=== PATIENT | male | born 1950 | race African-American/Black ===

== ENCOUNTER 2022-06-26 03:56 | Emergency (ER) | payer MEDICAID ==
[~2022-06-26] VITALS: Ht 177.8 cm; Wt 78.6 kg
[2022-06-26 04:55] VITALS: BP 158/75
== END 2022-06-26 06:18 | disposition home or self-care (01) ==
LOC: ER 03:56
DX: R33.9 Retention of urine, unspecified (principal); I10 Essential (primary) hypertension; E78.00 Pure hypercholesterolemia, unspecified
CPT/HCPCS: 51702; 99284

== ENCOUNTER 2022-12-07 12:01 | Emergency (ER) | payer MEDICAID ==
[~2022-12-07] VITALS: Ht 172.7 cm; Wt 82.0 kg
[2022-12-07 12:13] VITALS: BP 115/70
[2022-12-07] MEDS ORDERED: BO1 TP (14:26)
[2022-12-07] MEDS ORDERED: IBUP-2028 MT (14:26)
[2022-12-07] MEDS ORDERED: SULF1TAB48 MT (14:26)
[2022-12-07] MEDS ORDERED: CEPH500C2 MT (14:26)
== END 2022-12-07 14:48 | disposition home or self-care (01) ==
LOC: ER 12:01
DX: M79.675 Pain in left toe(s) (principal); I10 Essential (primary) hypertension; I49.9 Cardiac arrhythmia, unspecified; E78.00 Pure hypercholesterolemia, unspecified
CPT/HCPCS: 73660; 99283

== ENCOUNTER 2025-02-28 19:46 | Emergency (ER) | payer MEDICAID ==
[~2025-02-28] VITALS: Ht 170.2 cm; Wt 82.0 kg
[~2025-02-28 19:46] MED LIST: BO1 TP; CEPH500C2 MT; IBUP-2028 MT; SULF1TAB48 MT
[2025-02-28] MEDS ORDERED: LIDOCAINE 5% PATCH TOP SCH (21:15)
[2025-02-28] MEDS: LIDOCAINE 5% PATCH TOP SCH (21:15)
[2025-02-28 21:34] VITALS: O2SAT 98
[2025-02-28] MEDS: ACETAMINOPHEN 500MG TABLET PO ONE (21:41)
[2025-02-28 21:42] LABS: CLARITY URINE CLOUDY (CLEAR); COLOR URINE ORANGE (YELLOW); GLUCOSE URINE NEGATIVE (NEGATIVE); KETONES URINE TRACE (NEGATIVE); LEUKOCYTE ESTERASE URINE 3+ (NEGATIVE); NITRITE URINE NEGATIVE (NEGATIVE); OCCULT BLOOD URINE NEGATIVE (NEGATIVE); PH URINE 5.5 (4.5-8.0); PROTEIN URINE 1+ (NEGATIVE); SPECIFIC GRAVITY URINE 1.023 (1.005-1.030)
[2025-02-28 22:00] LABS: BACTERIA URINE 1+; RBC URINE 0-2 /hpf (0-2); SQUAMOUS EPITHELIAL CELL URINE 1+ /lpf (RARE/1+)
[2025-02-28 22:54] LABS: DIFFERENTIAL COMMENT 1; HEMATOCRIT. 40.2 % (42.0-52.0); HEMOGLOBIN. 13.3 g/dL (14.0-18.0); MEAN CORPUSCULAR HGB CONC 33.1 g/dL (31.0-37.0); MEAN CORPUSCULAR VOLUME 90.8 fL (80.0-94.0); MEAN PLATELET VOLUME 10.2 fl (7.4-10.4); PLATELET 140 x1000/uL (130-400); RED BLOOD CELL COUNT 4.43 mill/uL (4.7-6.1); RED CELL DISTRIBUTION WIDTH 13.9 % (11.6-14.6); WHITE BLOOD COUNT 16.3 x1000/uL (4.5-11.0)
[2025-02-28 23:00] LABS: CHLORIDE 104 mEq/L (98-107); POTASSIUM 4.4 mEq/L (3.5-5.1); SODIUM 137 mEq/L (136-145)
[2025-02-28 23:01] LABS: CALCIUM 9.4 mg/dL (8.7-10.4); CARBON DIOXIDE 26 mEq/L (21-32)
[2025-02-28 23:06] LABS: CREATININE 1.6 mg/dL (0.6-1.3); GLUCOSE 113 mg/dL (70-105); UREA NITROGEN BLOOD 23 mg/dL (9-23)
[2025-02-28 23:08] LABS: TROPONIN I HIGH SENSITIVITY < 4 ng/L (3.0-53)
[2025-02-28 23:25] LABS: PLATELET ESTIMATE NORMAL
[2025-02-28] MEDS ORDERED: LIDO-53 TP (23:58)
[2025-02-28] MEDS ORDERED: TOPUD MT (23:58)
[2025-03-01 00:12] VITALS: BP 97/57; PULSE 69; RESP 14; TEMP 37; O2SAT 99
== END 2025-03-01 00:25 | disposition home or self-care (01) ==
LOC: ER 19:46
DX: M54.9 Dorsalgia, unspecified (principal); E78.00 Pure hypercholesterolemia, unspecified; I10 Essential (primary) hypertension; N40.0 Benign prostatic hyperplasia without lower urinary tract symptoms; Z95.0 Presence of cardiac pacemaker; Z79.899 Other long term (current) drug therapy
CPT/HCPCS: 36415; 71045; 80048; 81003; 84484; 85025; 93005; 99285

== ENCOUNTER 2025-03-06 09:18 | Inpatient (IN) | payer MEDICAID ==
[~2025-03-06] VITALS: Ht 175.3 cm; Wt 82.6 kg
[~2025-03-06 09:18] MED LIST changes: +LIDO-53 TP; +TOPUD MT
[2025-03-06] MEDS: SODIUM CHLORIDE 0.9% 1,000 ML IV ONE (10:18)
[2025-03-06 10:22] LABS: HEMATOCRIT. 36.6 % (42.0-52.0); HEMOGLOBIN. 12.1 g/dL (14.0-18.0); MEAN PLATELET VOLUME 9.4 fl (7.4-10.4); PLATELET 160 x1000/uL (130-400); RED BLOOD CELL COUNT 4.10 mill/uL (4.7-6.1); RED CELL DISTRIBUTION WIDTH 13.5 % (11.6-14.6)
[2025-03-06 10:31] LABS: INR 1.1
[2025-03-06 10:37] LABS: CREATININE 1.3 mg/dL (0.6-1.3)
[2025-03-06 10:38] LABS: TROPONIN I HIGH SENSITIVITY 18 ng/L (3.0-53); UREA NITROGEN BLOOD 13 mg/dL (9-23)
[2025-03-06 10:39] LABS: ASPARTATE AMINOTRANSFERASE 39 IU/L (<34)
[2025-03-06 10:40] LABS: BILIRUBIN DIRECT 0.4 mg/dL (<=3.0); BILIRUBIN TOTAL 1.0 mg/dL (0.1-1.0); PROTEIN TOTAL 6.4 g/dL (6.0-8.3)
[2025-03-06 12:44] LABS: TROPONIN I HIGH SENSITIVITY 21 ng/L (3.0-53)
[2025-03-06] MEDS ORDERED: CEFTRIAXONE 1,000 MG in DEXT 5% WATER 100 ML IV STA (13:08)
[2025-03-06] MEDS: CEFTRIAXONE 1GM/50ML 50ML IV SCH (13:46)
[2025-03-06 13:58] LABS: BAND% 2.0 % (1.0-6.0); LYMPHOCYTES % MANUAL 2.0 % (20.0-50.0); MONOCYTES % MANUAL 6.0 % (2.0-8.0); NEUTROPHILS % MANUAL 90.0 % (45.0-75.0); PLATELET ESTIMATE NORMAL
[2025-03-06] MEDS ORDERED: CEFTRIAXONE 1GM/50ML 50 ML IV SCH (17:00)
[2025-03-06] MEDS: ACETAMINOPHEN 325MG TABLET PO PRN (18:26)
[2025-03-06 20:00] VITALS: BP_SYST 100; BP_SYST 101; BP_SYST 82; BP_DIAS 38; BP_DIAS 50; BP_DIAS 56; PULSE 74; RESP 19; TEMP 37.3; O2SAT 96
[2025-03-06 20:29] VITALS: BP 118/69; PULSE 66; RESP 17; TEMP 36.4
[2025-03-06 22:38] VITALS: BP 100/56; PULSE 74; RESP 19; TEMP 37.3; O2SAT 96
[2025-03-06 23:12] LABS: CLARITY URINE CLOUDY (CLEAR); COLOR URINE DARK YELLOW (YELLOW); GLUCOSE URINE NEGATIVE (NEGATIVE); KETONES URINE TRACE (NEGATIVE); LEUKOCYTE ESTERASE URINE 2+ (NEGATIVE); NITRITE URINE NEGATIVE (NEGATIVE); OCCULT BLOOD URINE 3+ (NEGATIVE); PH URINE 5.5 (4.5-8.0); PROTEIN URINE 1+ (NEGATIVE); SPECIFIC GRAVITY URINE 1.013 (1.005-1.030); UROBILINOGEN URINE 1.0 E.U./dL (0.2-1.0)
[2025-03-06 23:36] LABS: SQUAMOUS EPITHELIAL CELL URINE 2+ /lpf (RARE/1+); WBC URINE 15-25 /hpf (0-2)
[2025-03-06 23:37] LABS: BACTERIA URINE 1+; RBC URINE 0-2 /hpf (0-2)
[2025-03-07] VITALS: BP 118/69; PULSE 66; RESP 17; TEMP 36.4; O2SAT 99
[2025-03-07] MEDS: ONDANSETRON HCL 4MG/2ML INJ IV PRN (03:41)
[2025-03-07 04:00] VITALS: BP 115/57; PULSE 104; RESP 19; TEMP 37.5; O2SAT 98
[2025-03-07 08:00] VITALS: BP 96/48; PULSE 73; RESP 17; TEMP 36.2; O2SAT 96
[2025-03-07 12:00] VITALS: BP 105/45; PULSE 74; RESP 19; TEMP 36.5; O2SAT 96
[2025-03-07] MEDS: CEFTRIAXONE 1GM/50ML 50 ML IV SCH (15:42)
[2025-03-07] MEDS: TAMSULOSIN HCL 0.4MG SR CAPSULE PO SCH (15:43)
[2025-03-07 16:00] VITALS: BP 121/43; PULSE 75; RESP 18; TEMP 36.6; O2SAT 99
[2025-03-07 20:00] VITALS: BP 103/48; PULSE 73; RESP 18; TEMP 36.1; O2SAT 96
[2025-03-07 21:30] LABS: BASOPHILS % 0.9 % (0.0-2.0); EOSINOPHILS % 0.5 % (0.0-5.0); HEMATOCRIT. 33.7 % (42.0-52.0); HEMOGLOBIN. 11.2 g/dL (14.0-18.0); LYMPHOCYTES % 8.4 % (20.0-50.0); MEAN PLATELET VOLUME 9.3 fl (7.4-10.4); MONOCYTES % 8.5 % (2.0-8.0); NEUTROPHILS % 81.7 % (40.0-76.0); PLATELET 175 x1000/uL (130-400); RED BLOOD CELL COUNT 3.82 mill/uL (4.7-6.1); RED CELL DISTRIBUTION WIDTH 13.4 % (11.6-14.6)
[2025-03-08] VITALS: BP 109/47; PULSE 80; RESP 18; TEMP 36.6; O2SAT 96
[2025-03-08 04:00] VITALS: BP_SYST 99; BP_DIAS 42; BP_DIAS 50; RESP 18; TEMP 36.1; O2SAT 98
[2025-03-08] MEDS ORDERED: DONE5TAB33 PO (05:02)
[2025-03-08] MEDS ORDERED: FLUO-413 PO (05:02)
[2025-03-08] MEDS ORDERED: DOCU-422 PO (05:02)
[2025-03-08] MEDS ORDERED: ASPI-1497 PO (05:02)
[2025-03-08] MEDS ORDERED: METO-396 PO (05:02)
[2025-03-08] MEDS ORDERED: FINA5TAB11 PO (05:02)
[2025-03-08] MEDS ORDERED: ATOR20TA65 PO (05:02)
[2025-03-08 08:00] VITALS: BP 108/53; PULSE 75; RESP 20; TEMP 36.9; O2SAT 98
[2025-03-08] MEDS ORDERED: SULF1TAB48 MT (11:45)
[2025-03-08 12:00] VITALS: BP 117/54; PULSE 74; RESP 20; TEMP 37.1; O2SAT 98
[2025-03-08 16:00] VITALS: BP_SYST 100; BP_SYST 102; BP_SYST 108; BP_DIAS 47; BP_DIAS 48; BP_DIAS 51; PULSE 95; RESP 20; TEMP 37.5; O2SAT 97
[2025-03-08 20:00] VITALS: BP 122/50; PULSE 71; RESP 17; TEMP 36.7; O2SAT 98
[2025-03-08] MEDS ORDERED: FLUOXETINE HCL 20MG CAPSULE PO SCH (21:00)
[2025-03-08] MEDS: ATORVASTATIN CALCIUM 20MG TABLET PO SCH (21:37)
[2025-03-08] MEDS: DONEPEZIL HCL 5MG TABLET PO SCH (21:38)
[2025-03-08] MEDS: FLUOXETINE HCL 20MG CAPSULE PO SCH (21:38)
[2025-03-09] VITALS: BP 146/64; PULSE 90; RESP 17; TEMP 36.7; O2SAT 98
[2025-03-09 04:00] VITALS: BP 116/50; PULSE 66; RESP 18; TEMP 36.7; O2SAT 98
[2025-03-09 08:00] VITALS: BP 132/51; PULSE 79; RESP 20; TEMP 36.8; O2SAT 96
[2025-03-09 12:00] VITALS: BP 96/36; PULSE 76; RESP 20; TEMP 37.2; O2SAT 97
[2025-03-09 16:00] VITALS: BP 102/59; PULSE 81; RESP 18; TEMP 36.7; O2SAT 96
[2025-03-09 20:00] VITALS: BP 105/46; PULSE 78; RESP 16; TEMP 36.7; O2SAT 96
[2025-03-10] VITALS: BP 100/41; PULSE 88; RESP 18; TEMP 36; O2SAT 97
[2025-03-10 04:00] VITALS: BP 104/53; PULSE 80; RESP 18; TEMP 36.7; O2SAT 95
[2025-03-10 08:00] VITALS: BP 106/37; PULSE 84; RESP 20; TEMP 36.7; O2SAT 90
[2025-03-10 12:00] VITALS: BP 113/41; PULSE 89; RESP 20; TEMP 36.6; O2SAT 88
[2025-03-10 13:26] LABS: BG BASE EXCESS -3.2 mmol/L (-2.0-3.0); BG CARBOXYHEMOGLOBIN 0.4 % (0.5-1.5); BG DEOXYHEMOGLOBIN 8.1 % (0.0-5.0); BG FRACTION INSPIRED OXYGEN 21; BG HCO3 ACT 19.2 mmol/L (21.0-28.0); BG METHEMOGLOBIN 0.3 % (0.5-1.5); BG OXYGEN SATURATION 91.8 % (94.0-98.0); BG OXYHEMOGLOBIN 91.2 % (94.0-98.0); BG PCO2 27.3 mmHg (35.0-48.0); BG PH 7.466 (7.350-7.450); BG PO2 64.4 mmHg (83.0-108.0); BG SAMPLE SITE RIGHT RADIAL; BG TOTAL HEMOGLOBIN 12.1 g/dL (13.5-17.5); BG VENT MODE ROOM AIR
[2025-03-10 16:00] VITALS: BP 101/43; PULSE 78; RESP 19; TEMP 37.7; O2SAT 87
[2025-03-10 18:14] LABS: HEMATOCRIT. 33.3 % (42.0-52.0); HEMOGLOBIN. 10.8 g/dL (14.0-18.0); MEAN PLATELET VOLUME 9.8 fl (7.4-10.4); PLATELET 189 x1000/uL (130-400); RED BLOOD CELL COUNT 3.69 mill/uL (4.7-6.1); RED CELL DISTRIBUTION WIDTH 14.0 % (11.6-14.6)
[2025-03-10 18:28] LABS: CREATININE 1.2 mg/dL (0.6-1.3)
[2025-03-10 18:29] LABS: UREA NITROGEN BLOOD 26.0 mg/dL (9-23)
[2025-03-10 18:37] LABS: LYMPHOCYTES % MANUAL 9.0 % (20.0-50.0); MONOCYTES % MANUAL 7.0 % (2.0-8.0); NEUTROPHILS % MANUAL 84.0 % (45.0-75.0); PLATELET ESTIMATE NORMAL
[2025-03-10 20:00] VITALS: BP 126/45; PULSE 82; RESP 18; TEMP 36.5; O2SAT 96
[2025-03-11] VITALS: BP 114/49; PULSE 85; RESP 18; TEMP 36.5; O2SAT 95
[2025-03-11 04:00] VITALS: BP 106/52; PULSE 82; RESP 19; TEMP 36.5; O2SAT 98
[2025-03-11 08:00] VITALS: BP 118/65; PULSE 80; RESP 20; TEMP 36.7; O2SAT 96
[2025-03-11 09:34] LABS: BASOPHILS % 0.2 % (0.0-2.0); EOSINOPHILS % 1.0 % (0.0-5.0); HEMATOCRIT. 31.8 % (42.0-52.0); HEMOGLOBIN. 10.8 g/dL (14.0-18.0); LYMPHOCYTES % 7.7 % (20.0-50.0); MEAN PLATELET VOLUME 9.4 fl (7.4-10.4); MONOCYTES % 9.3 % (2.0-8.0); NEUTROPHILS % 81.8 % (40.0-76.0); PLATELET 205 x1000/uL (130-400); RED BLOOD CELL COUNT 3.63 mill/uL (4.7-6.1); RED CELL DISTRIBUTION WIDTH 13.9 % (11.6-14.6)
[2025-03-11 09:57] LABS: CREATININE 1.2 mg/dL (0.6-1.3); UREA NITROGEN BLOOD 34.0 mg/dL (9-23)
[2025-03-11 12:00] VITALS: BP 110/50; PULSE 77; RESP 16; TEMP 36.5; O2SAT 99
[2025-03-11 16:00] VITALS: BP 115/43; PULSE 79; RESP 18; TEMP 37.1; O2SAT 96
[2025-03-11] MEDS: POLYETHYLENE GLYCOL 3350 (17GM) 1 DOSE PACK PO NR (17:56)
[2025-03-11] MEDS: SENNOSIDES/DOCUSATE SOD 8.6/50MG TABLET PO PRN (18:12)
[2025-03-11 20:00] VITALS: BP 116/41; PULSE 79; RESP 17; TEMP 36.4; O2SAT 97
[2025-03-12] VITALS (7 sets, daily range): BP systolic 95–120; BP diastolic 38–66; PULSE 74–91; RESP 17–19; TEMP 36.3–37.2; O2SAT 89–98
[2025-03-12] MEDS: IPRATROPIUM/ALBUTEROL 0.5-3(2.5)MG/3ML NEB HHN PRN (16:01)
[2025-03-13] VITALS: BP 124/46; PULSE 90; RESP 19; TEMP 36.5; O2SAT 89
[2025-03-13 08:00] VITALS: BP 101/43; PULSE 84; RESP 18; TEMP 36.4; O2SAT 97
[2025-03-13 12:00] VITALS: BP 107/42; PULSE 87; RESP 19; TEMP 36.4; O2SAT 96
[2025-03-13 16:00] VITALS: BP 118/41; PULSE 78; RESP 18; TEMP 36.6; O2SAT 95
[2025-03-13 20:00] VITALS: BP 111/48; PULSE 81; RESP 18; TEMP 36.8; O2SAT 95
[2025-03-14] VITALS: BP 103/64; PULSE 81; RESP 18; TEMP 35.9; O2SAT 93
[2025-03-14 04:00] VITALS: BP 113/47; PULSE 76; RESP 17; TEMP 36.6; O2SAT 98
[2025-03-14 08:00] VITALS: BP 119/43; PULSE 74; RESP 20; TEMP 36.3; O2SAT 98
[2025-03-14 12:00] VITALS: BP 114/42; PULSE 75; RESP 20; TEMP 36.3; O2SAT 96
[2025-03-14 16:00] VITALS: BP 106/37; PULSE 72; RESP 18; TEMP 36.6; O2SAT 97
[2025-03-14 20:00] VITALS: BP 109/44; PULSE 75; RESP 19; TEMP 37.1; O2SAT 97
[2025-03-15] VITALS: BP 117/57; PULSE 83; RESP 19; TEMP 36.6; O2SAT 95
[2025-03-15 04:00] VITALS: BP 106/36; PULSE 78; RESP 19; TEMP 36.5; O2SAT 98
[2025-03-15 08:00] VITALS: BP 111/60; PULSE 80; RESP 18; TEMP 36.8; O2SAT 98
[2025-03-15 12:00] VITALS: BP 123/36; PULSE 74; RESP 20; TEMP 36.2; O2SAT 97
[2025-03-15 16:00] VITALS: BP 104/38; PULSE 78; RESP 18; TEMP 36.6; O2SAT 96
[2025-03-15 18:37] VITALS: BP 104/38; PULSE 78; TEMP 97.9; O2SAT 96
[2025-03-16] VITALS: BP 108/46; PULSE 77; RESP 19; TEMP 37.1; O2SAT 94
[2025-03-16 04:00] VITALS: BP 116/45; PULSE 83; RESP 19; TEMP 36.6; O2SAT 94
[2025-03-16 08:00] VITALS: BP 108/47; PULSE 83; RESP 17; TEMP 36.6; O2SAT 95
[2025-03-16 12:00] VITALS: BP 102/64; PULSE 74; RESP 17; TEMP 36.8; O2SAT 96
[2025-03-16 16:00] VITALS: BP 114/48; PULSE 83; RESP 17; TEMP 36.8; O2SAT 97
[2025-03-16 20:00] VITALS: BP 116/39; PULSE 70; RESP 20; TEMP 36.6; O2SAT 100
[2025-03-17] VITALS (7 sets, daily range): BP systolic 93–120; BP diastolic 36–57; PULSE 69–88; RESP 17–19; TEMP 36.2–36.6; O2SAT 96–100
[2025-03-18] VITALS: BP 109/58; PULSE 84; RESP 18; TEMP 36.4; O2SAT 97
[2025-03-18 04:00] VITALS: BP 103/42; PULSE 84; RESP 18; TEMP 36.5; O2SAT 96
[2025-03-18 08:00] VITALS: BP 110/43; PULSE 87; RESP 17; TEMP 36.6; O2SAT 96
[2025-03-18 12:00] VITALS: BP 107/57; PULSE 92; RESP 17; TEMP 36.1; O2SAT 95
[2025-03-18 16:00] VITALS: BP 110/47; PULSE 81; RESP 17; TEMP 36.3; O2SAT 96
[2025-03-18 20:00] VITALS: BP 109/37; PULSE 85; RESP 19; TEMP 36.1; O2SAT 97
[2025-03-19] VITALS: BP 113/42; PULSE 76; RESP 18; TEMP 36.5; O2SAT 100
[2025-03-19 04:00] VITALS: BP 108/48; PULSE 76; RESP 18; TEMP 36.3; O2SAT 98
[2025-03-19 08:00] VITALS: BP 106/41; PULSE 82; RESP 18; TEMP 36.4; O2SAT 82
[2025-03-19] MEDS: HYDROCODONE/ACETAMINOPHEN 5/325MG TABLET PO SCH (11:25)
[2025-03-19 12:00] VITALS: BP 103/37; PULSE 84; RESP 18; TEMP 36.9; O2SAT 98
[2025-03-19 16:00] VITALS: BP 105/34; PULSE 82; RESP 18; TEMP 36.7; O2SAT 97
[2025-03-19 20:00] VITALS: BP 114/45; PULSE 88; RESP 18; TEMP 36.5; O2SAT 97
[2025-03-20] VITALS: BP 121/64; PULSE 85; RESP 16; TEMP 36.3; O2SAT 98
[2025-03-20 04:00] VITALS: BP 109/37; PULSE 107; RESP 17; TEMP 36.4; O2SAT 99
[2025-03-20 08:00] VITALS: BP 109/43; PULSE 79; RESP 16; TEMP 36.5; O2SAT 99
[2025-03-20 12:00] VITALS: BP 108/45; PULSE 95; RESP 20; TEMP 36.5; O2SAT 97
[2025-03-20 16:00] VITALS: BP 104/46; PULSE 94; RESP 20; TEMP 36.7; O2SAT 100
[2025-03-20 20:00] VITALS: BP 103/41; PULSE 95; RESP 18; TEMP 36.6; O2SAT 97
[2025-03-20] MEDS: LIDOCAINE 5% PATCH TOP SCH (20:30)
[2025-03-21] VITALS: BP 106/48; PULSE 95; RESP 20; TEMP 36.7; O2SAT 100
[2025-03-21 04:00] VITALS: BP 103/37; PULSE 98; RESP 20; TEMP 36.2; O2SAT 100
[2025-03-21 08:00] VITALS: BP 109/49; PULSE 89; RESP 16; TEMP 36.1; O2SAT 99
[2025-03-21 12:00] VITALS: BP 105/40; PULSE 91; RESP 20; TEMP 36.2; O2SAT 96
[2025-03-21 16:00] VITALS: BP 102/40; PULSE 94; RESP 20; TEMP 36.3; O2SAT 96
[2025-03-21] MEDS ORDERED: LACTULOSE 20G/30ML UDC PO SCH (16:15)
[2025-03-21] MEDS: DEXT 5%/0.45% NACL 1000ML 1,000 ML IV SCH (16:43)
[2025-03-21 20:00] VITALS: BP 97/57; PULSE 96; RESP 20; TEMP 36; O2SAT 95
[2025-03-21] MEDS: LACTULOSE 20G/30ML UDC PO NR (21:27)
[2025-03-21] MEDS ORDERED: HYDROCODONE/ACETAMINOPHEN 5/325MG TABLET PO PRN (23:00)
[2025-03-21] MEDS: MIDODRINE HCL 5MG TABLET PO SCH (23:17)
[2025-03-22] VITALS (7 sets, daily range): BP systolic 97–113; BP diastolic 33–76; PULSE 62–99; RESP 18–20; TEMP 36.1–37; O2SAT 93–99
[2025-03-22] MEDS ORDERED: IPRATROPIUM/ALBUTEROL 0.5-3(2.5)MG/3ML NEB HHN PRN (05:00)
[2025-03-22] MEDS ORDERED: NALOXONE HCL 0.4MG/ML VIAL IV PRN (15:15)
[2025-03-22] MEDS: PIPERACILLIN/TAZO 3.375G/50ML 50 ML IV SCH (16:01)
[2025-03-22] MEDS: FUROSEMIDE 20MG/2ML VIAL IVP NR (17:53)
[2025-03-22] MEDS: METHYLPREDNISOLONE SOD SUCC 40MG/ML (ACT-O-VIAL) IV SCH (17:54)
[2025-03-22] MEDS: DOCUSATE SODIUM 250MG CAPSULE PO SCH (17:55)
[2025-03-22 18:57] LABS: PLATELET 322 x1000/uL (130-400); RED BLOOD CELL COUNT 3.83 mill/uL (4.7-6.1); RED CELL DISTRIBUTION WIDTH 13.7 % (11.6-14.6)
[2025-03-22 19:01] LABS: UREA NITROGEN BLOOD 89.0 mg/dL (9-23)
[2025-03-22 19:02] LABS: CREATININE 3.2 mg/dL (0.6-1.3)
[2025-03-23] VITALS (7 sets, daily range): BP systolic 91–99; BP diastolic 34–46; PULSE 60–99; RESP 17–20; TEMP 36.1–37.2; O2SAT 96–100
[2025-03-23] MEDS: ZOLPIDEM TARTRATE 5MG TABLET PO PRN (01:00)
[2025-03-23] MEDS ORDERED: TRAMADOL 50MG TABLET PO NR (12:15)
[2025-03-23] MEDS ORDERED: FINASTERIDE 5MG TABLET PO SCH (13:00)
[2025-03-23] MEDS ORDERED: DEXT 5%/0.9% NACL 1,000 ML IV SCH (13:15)
[2025-03-23] MEDS ORDERED: SODIUM ZIRCONIUM CYCLOSILICATE 10GM/PACKET PO NR (13:15)
[2025-03-23 13:21] LABS: HEMATOCRIT. 33.6 % (42.0-52.0); HEMOGLOBIN. 11.0 g/dL (14.0-18.0); MEAN PLATELET VOLUME 10.1 fl (7.4-10.4); PLATELET 259 x1000/uL (130-400); RED BLOOD CELL COUNT 3.79 mill/uL (4.7-6.1); RED CELL DISTRIBUTION WIDTH 14.3 % (11.6-14.6)
[2025-03-23 14:03] LABS: BAND% 7.0 % (1.0-6.0); LYMPHOCYTES % MANUAL 4.0 % (20.0-50.0); MONOCYTES % MANUAL 5.0 % (2.0-8.0); NEUTROPHILS % MANUAL 84.0 % (45.0-75.0); PLATELET ESTIMATE NORMAL
[2025-03-23] MEDS ORDERED: ATROPINE SULFATE 1MG/10ML SYR IV PRN (14:30)
[2025-03-23] MEDS ORDERED: SODIUM BICARBONATE 8.4% 50MEQ/50ML SYR IV ONE (14:33)
[2025-03-23] MEDS ORDERED: SODIUM BICARBONATE 8.4% 50MEQ/50ML SYR IV SCH (14:45)
[2025-03-23] MEDS ORDERED: NOREPINEPHRINE 8MG/250ML PMX 250 ML IV PRN (14:45)
[2025-03-23 15:42] LABS: UREA NITROGEN BLOOD 114.0 mg/dL (9-23)
[2025-03-23 15:43] LABS: CREATININE 4.5 mg/dL (0.6-1.3)
[2025-03-23] MEDS ORDERED: TRAMADOL 50MG TABLET PO PRN (16:00)
== END 2025-03-23 15:02 | DRG 720 ==
LOC: ER 09:18 → 5WST 13:07 → EDBEDREQ 13:09 → EDBEDREQTM 13:09 → ENRESERV 16:36 → 7EST 03-12 18:09 → 7WST 03-22 10:28 → CVICU 03-23 14:15
PROVIDERS: ADMIT Internal Medicine; ATTEND Internal Medicine
PROC: 5A0935A Assistance with Respiratory Ventilation, Less than 24 Consecutive Hours, High Flow/Velocity Cannula (ICD-10-PCS; 2025-03-22)
PROC: 06HY33Z Insertion of Infusion Device into Lower Vein, Percutaneous Approach (ICD-10-PCS; principal; 2025-03-23)
PROC: 5A12012 Performance of Cardiac Output, Single, Manual (ICD-10-PCS; 2025-03-23)
PROC: 5A0935A Assistance with Respiratory Ventilation, Less than 24 Consecutive Hours, High Flow/Velocity Cannula (ICD-10-PCS; 2025-03-23)
PROC: 0BH17EZ Insertion of Endotracheal Airway into Trachea, Via Natural or Artificial Opening (ICD-10-PCS; 2025-03-23)
DX: A41.9 Sepsis, unspecified organism (principal); J96.01 Acute respiratory failure with hypoxia; N17.0 Acute kidney failure with tubular necrosis; J18.9 Pneumonia, unspecified organism; J90 Pleural effusion, not elsewhere classified; E87.1 Hypo-osmolality and hyponatremia; G90.89 Other disorders of autonomic nervous system; Z20.822 Contact with and (suspected) exposure to COVID-19; N39.0 Urinary tract infection, site not specified; I46.9 Cardiac arrest, cause unspecified; Y95 Nosocomial condition; I10 Essential (primary) hypertension; D64.9 Anemia, unspecified; E78.00 Pure hypercholesterolemia, unspecified; E86.9 Volume depletion, unspecified; E87.5 Hyperkalemia; F03.94 Unspecified dementia, unspecified severity, with anxiety; N13.8 Other obstructive and reflux uropathy; Z60.2 Problems related to living alone; N40.1 Benign prostatic hyperplasia with lower urinary tract symptoms; Z95.0 Presence of cardiac pacemaker
CPT/HCPCS: 36415; 36600; 71045; 74018; 74176; 76604; 80048; 80076; 81003; 82375; 82550; 82805; 82962; 83605; 83880; 84145; 84484; 85025; 85027; 86850; 86900; 87426; 92950; 93005; 94002; 94070; 94640; 94664; 97116; 97162; 97164; 97530; 98960; 99291; A4606; J0696; J1940; J2405; J2543; J2919; J3490; J7030